=== PATIENT | male | born 1975 | race Caucasian/White ===

== ENCOUNTER 2022-11-15 12:29 | Emergency (ER) | payer SELFPAY ==
[~2022-11-15] VITALS: Ht 177 cm; Wt 93.2 kg
--- NOTE | 2022-11-15 12:48 | ED Psychosocial ---
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 has been an alcoholic for thirty years. has had seizures with detox before. Source: patient, family ((fiance)) History of Present Illness Date Seen by Provider: Nov 15, 2022 Time Seen by Provider: 12:37 Initial Comments Patient is a 47-year-old male who presents to the emergency room with his "fianc" chief complaint of alcohol intoxication and possibly needing medical admit for withdrawal. He has been trying to get sober over the last several weeks, keeping appointments with [facility] and [facility]. He was on docket for admission today and his fiance states that he drank an excessive amount last night. His drink of choice is vodka "1.75 L a day" for the last 30 years. He does have a history of stroke that did not leave him with any significant debility. He states he has some chronic blood in his stool that is been worked up without any etiology. He has been treated for hep C. He does have a history of hypertension. No recent fevers, chills, congestion. He does have occasional cough. States that he is nauseous right now. Patient medications from [facility] were sent over to [facility] for him for withdrawal, including Ativan. Timing/Duration: this morning Associated Symptoms: anxiety, impaired concentration Allergies and Home Medications Allergies Coded Allergies: gabapentin (Verified Allergy, Unknown, 11/15/22) Patient Home Medication List Home Medication List Reviewed: Yes Chlordiazepoxide HCl (Chlordiazepoxide HCl) 25 Mg Capsule, 75 MG PO TID Prescribed by: JAI CLEVELAND on 11/15/221747 Ondansetron (Ondansetron Odt) 8 Mg Tab.rapdis, 8 MG SL Q8H PRN for NAUSEA/VOMITING Prescribed by: JAI CLEVELAND on 11/15/221747 Review of Systems Constitutional: see HPI EENTM: no symptoms reported Respiratory: no symptoms reported Cardiovascular: no symptoms reported Gastrointestinal: nausea Genitourinary: no symptoms reported Musculoskeletal: no symptoms reported Skin: no symptoms reported Psychiatric/Neurological: Anxiety, Emotional Problems All Other Systems Reviewed Negative Unless Noted: Yes Past [place]-Ajxdjz-[place]jjiim Hx Patient Social History Tobacco Use?: Yes Tobacco type used: Cigarettes Smoking Status: Current Everyday Smoker Substance use?: Yes Substance type: Marijuana Alcohol Use?: Yes Alcohol type: Hard Liquor Alcohol Frequency: Daily Pt feels they are or have been: No Past Medical History Surgery/Hospitalization HX: CVA, ETOH, IV DRUG USE 15 YRS AGO Physical Exam Vital Signs - First Documented 11/15/22 11/15/22 12:38 13:46 Temp 36.5 Pulse 103 Resp 20 B/P (MAP) 157/120 (132) Pulse Ox 97 O2 Delivery Nasal Cannula O2 Flow Rate 1.00 Capillary Refill : Height, Weight, BMI Height: '" Weight: lbs. oz. kg; 29.00 BMI Method: General Appearance: WD/WN, mild distress HEENT: other (injected conjunctivae bilaterally) Neck: full range of motion Respiratory: lungs clear, normal breath sounds, no respiratory distress, no accessory muscle use Cardiovascular: regular rate, rhythm, tachycardia Peripheral Pulses: 2+ Radial Pulses (R), 2+ Radial Pulses (L) Gastrointestinal: normal bowel sounds, non tender, soft Extremities: normal range of motion Neurologic/Psychiatric: no motor/sensory deficits, alert, depressed affect Behavior/Eye Contact: cooperative, other (slurred speech) Skin: normal color, warm/dry Progress/Results/Core Measures Results/Orders Lab Results Laboratory Tests Test 11/15/22 12:45 11/15/22 14:36 Range/Units White Blood Count 5.9 4.3-11.0 10^3/uL Red Blood Count 4.36 4.30-5.52 10^6/uL Hemoglobin 14.7 13.3-17.7 g/dL Hematocrit 42 40-54 % Mean Corpuscular Volume 96 80-99 fL Mean Corpuscular Hemoglobin 34 25-34 pg Mean Corpuscular Hemoglobin Concent 35 32-36 g/dL Red Cell Distribution Width 13.5 10.0-14.5 % Platelet Count 179 130-400 10^3/uL Mean Platelet Volume 9.2 9.0-12.2 fL Immature Granulocyte % (Auto) 1 % Neutrophils (%) (Auto) 64 42-75 % Lymphocytes (%) (Auto) 21 12-44 % Monocytes (%) (Auto) 10 0-12 % Eosinophils (%) (Auto) 2 0-10 % Basophils (%) (Auto) 2 0-10 % Neutrophils # (Auto) 3.8 1.8-7.8 10^3/uL Lymphocytes # (Auto) 1.2 1.0-4.0 10^3/uL Monocytes # (Auto) 0.6 0.0-1.0 10^3/uL Eosinophils # (Auto) 0.1 0.0-0.3 10^3/uL Basophils # (Auto) 0.1 0.0-0.1 10^3/uL Immature Granulocyte # (Auto) 0.0 0.0-0.1 10^3/uL Sodium Level 144 135-145 MMOL/L Potassium Level 3.6 3.6-5.0 MMOL/L Chloride Level 111 H 98-107 MMOL/L Carbon Dioxide Level 19 L 21-32 MMOL/L Anion Gap 14 5-14 MMOL/L Blood Urea Nitrogen 9 7-18 MG/DL Creatinine 0.87 0.60-1.30 MG/DL Estimat Glomerular Filtration Rate 108 BUN/Creatinine Ratio 10 Glucose Level 165 H 70-105 MG/DL Calcium Level 8.9 8.5-10.1 MG/DL Corrected Calcium 8.6 8.5-10.1 MG/DL Total Bilirubin 0.5 0.1-1.0 MG/DL Aspartate Amino Transf (AST/SGOT) 89 H 5-34 U/L Alanine Aminotransferase (ALT/SGPT) 82 H 0-55 U/L Alkaline Phosphatase 86 40-136 U/L Total Protein 7.9 6.4-8.2 GM/DL Albumin 4.4 3.2-4.5 GM/DL Salicylates Level < 5.0 L 5.0-20.0 MG/DL Acetaminophen Level < 10 L 10-30 UG/ML Serum Alcohol 447 *H <10 MG/DL Urine Opiates Screen NEGATIVE NEGATIVE Urine Oxycodone Screen NEGATIVE NEGATIVE Urine Methadone Screen NEGATIVE NEGATIVE Urine Propoxyphene Screen NEGATIVE NEGATIVE Urine Barbiturates Screen NEGATIVE NEGATIVE Ur Tricyclic Antidepressants Screen NEGATIVE NEGATIVE Urine Phencyclidine Screen NEGATIVE NEGATIVE Urine Amphetamines Screen NEGATIVE NEGATIVE Urine Methamphetamines Screen NEGATIVE NEGATIVE Urine Benzodiazepines Screen NEGATIVE NEGATIVE Urine Cocaine Screen NEGATIVE NEGATIVE Urine Cannabinoids Screen POSITIVE H NEGATIVE My Orders Orders - JAI CLEVELAND MD Cbc With Automated Diff (11/15/22 12:48) Comprehensive Metabolic Panel (11/15/22 12:48) Alcohol (11/15/22 12:48) Acetaminophen (11/15/22 12:48) Salicylate (11/15/22 12:48) Ekg Tracing (11/15/22 12:48) Lactated Ringers (Lr 1000 Ml Iv Solution (11/15/22 13:00) Ondansetron Injection (Zofran Injectio (11/15/22 13:00) Ondansetron Injection (Zofran Injectio (11/15/22 12:55) Lactated Ringers (Lr 1000 Ml Iv Solution (11/15/22 12:55) Ekg Tracing (11/15/22 13:23) Nicotine Patch (Nicoderm Patch) (11/15/22 13:30) Iv/Invasive Line Insertion .IV INSERT (11/15/22 13:40) Drug Screen Stat (Urine) (11/15/22 13:40) Oxygen-Administer 07,19 (11/15/22 13:49) Lactated Ringers (Lr 1000 Ml Iv Solution (11/15/22 14:30) Pantoprazole Injection (Protonix Injecti (11/15/22 15:30) Ondansetron Injection (Zofran Injectio (11/15/22 15:30) Ns Iv 1000 Ml (Sodium Chloride 0.9%) (11/15/22 16:30) Lorazepam Tablet (Ativan Tablet) (11/15/22 16:30) Lorazepam Tablet (Ativan Tablet) (11/15/22 17:35) Medications Given in ED Vital Signs/I&O 11/16/22 00:00 Intake Total 3000 ml Balance 3000 ml Blood Pressure Mean: 132 Progress Progress Note : Time: 16:53 Progress Note Patient seen and evaluated by me. Evaluation today includes physical exam, CBC, Chem-12, urine drug screen, alcohol, acetaminophen, salicylate levels. Patient also had an EKG done. Pertinent physical exam findings well-developed well- nourished male obviously intoxicated with slurred speech, injected conjunctive a bilaterally, regular heart rhythm, clear lungs, soft and nontender abdomen. Moving all 4 extremities. Following commands, oriented but again appears acutely intoxicated on alcohol. Differential diagnosis based on history and physical exam acute alcohol intoxication Labs, EKG independently reviewed and interpreted by me. See is completely normal. Chem-12 pertinent for a mildly decreased CO2 at 19. His serum blood sugar is 165. AST is 89 ALT is elevated at 82. His total bilirubin is within normal limits of 0.5. Normal electrolytes and normal renal function. His urine drug screen is positive for THC. Aspirin and acetaminophen levels are undetectable, his serum alcohol is 447. EKG is normal. Patient is initially treated in the emergency department with 2 L of lactated Ringer's. He was mildly tachycardic at presentation with a heart rate of 103. He had 1/3 L of normal saline. The patient had IV Zofran a total of 8 mg. He was given 40 mg of IV Protonix and received a total of 3 mg of Ativan p.o. throughout his stay in the ED. The plan was initially to try and sober the patient up to acceptable levels for admission to [facility] for detox however due to the timing and the admit staff leaving at 5 PM I spoke with the director of [facility] and they initially asked for us to keep the patient overnight and monitor the patient for withdrawal symptoms and treat as needed and then they would take him the following morning however this is not acceptable for the ED as we are not a medical detox unit. There are no physicians available at our facility to accommodate medical detox. The patient remains intoxicated and very anxious. I discussed with the patient discharged home with a short course of chlordiazepoxide and nausea medications. He is quite apprehensive. His fiance was contacted and will drive back from [facility] to come pick him up. The director at [facility] stated that as long as the patient was completely sober in the morning at 9 AM he would be admitted to detox. Patient discharged home in care of his fiance. Initial ECG Impression Date: Nov 15, 2022 Initial ECG Impression Time: 13:03 Initial ECG Rate: 96 Initial ECG Rhythm: Normal Sinus Initial ECG Impression: Normal Comment NO ectopy; no ST segment change Departure Impression Primary Impression: Alcohol abuse Additional Impression: Alcohol intoxication Qualified Codes: F10.920 - Alcohol use, unspecified with intoxication, uncomplicated Disposition: 01 HOME, SELF-CARE Condition: Stable Departure-Patient Inst. Decision time for Depature: 17:02 Referrals: [facility] [place] Patient Instructions: Alcohol Use Disorder ED Add. Discharge Instructions: NO alcohol tonight. Zofran for nausea as needed every 8 hours. Chlordiazepoxide as directed for anxiety/withdrawal symptoms. 3 pills every 8 hours for the first 24hr; 2 pills every 8 hours the following day, 1 pills every 8 hours day 3 and 1 pill every 12h the last day. You must be at [facility] tomorrow at 9AM with NO ALCOHOL in your system; if you have a lcohol you will not be admitted. If you cannot be at home with your girlfriend and not drink - go to a sober friend's house for the night. REturn to the Emergency Department for any new, concerning or emergent complaints. Scripts Ondansetron (Ondansetron Odt) 8 Mg Tab.rapdis 8 MG SL Q8H PRN for NAUSEA/VOMITING, #12 TAB Prov: JAI CLEVELAND MD 11/15/22 Chlordiazepoxide HCl (Chlordiazepoxide HCl) 25 Mg Capsule 75 MG PO TID, #20 CAP 3 pills Q8h day 1; 2 pills Q8h day 2; 1 pills Q8h day 3; 1 pill Q12h day 4 Prov: JAI CLEVELAND MD 11/15/22 JAI CLEVELAND MD Nov 15, 2022 12:48
[2022-11-15 12:55] LABS: BASOPHILS # (AUTO) 0.1 10^3/uL (0.0-0.1); BASOPHILS % (AUTO) 2 % (0-10); EOSINOPHILS # (AUTO) 0.1 10^3/uL (0.0-0.3); EOSINOPHILS % (AUTO) 2 % (0-10); HEMATOCRIT 42 % (40-54); HEMOGLOBIN 14.7 g/dL (13.3-17.7); LYMPHOCYTES # (AUTO) 1.2 10^3/uL (1.0-4.0); LYMPHOCYTES % (AUTO) 21 % (12-44); MEAN CORPUSCULAR HEMOGLOBIN 34 pg (25-34); MEAN CORPUSCULAR HGB CONC 35 g/dL (32-36); MEAN CORPUSCULAR VOLUME 96 fL (80-99); MEAN PLATELET VOLUME 9.2 fL (9.0-12.2); MONOCYTES # (AUTO) 0.6 10^3/uL (0.0-1.0); MONOCYTES % (AUTO) 10 % (0-12); NEUTROPHILS # (AUTO) 3.8 10^3/uL (1.8-7.8); NEUTROPHILS % (AUTO) 64 % (42-75); PLATELET COUNT 179 10^3/uL (130-400); WHITE BLOOD COUNT 5.9 10^3/uL (4.3-11.0)
[2022-11-15] MEDS ORDERED: LACTATED RINGERS 1,000 ML IV ONE (12:55)
[2022-11-15] MEDS ORDERED: ONDANSETRON 4 MG/2 ML (SDV) Z0FRAN ONE (12:55)
[2022-11-15] MEDS: LACTATED RINGERS 1,000 ML IV SCH ×2 (12:57→14:31)
[2022-11-15] MEDS ORDERED: ONDANSETRON 4 MG/2 ML (SDV) Z0FRAN IVP ONE ×2 (13:00→15:30)
[2022-11-15 13:09] LABS: ALBUMIN 4.4 GM/DL (3.2-4.5); CHLORIDE 111 MMOL/L (98-107); POTASSIUM 3.6 MMOL/L (3.6-5.0); SODIUM 144 MMOL/L (135-145)
[2022-11-15 13:11] LABS: CALCIUM 8.9 MG/DL (8.5-10.1)
[2022-11-15 13:12] LABS: GLUCOSE 165 MG/DL (70-105); TOTAL PROTEIN 7.9 GM/DL (6.4-8.2)
[2022-11-15 13:13] LABS: CARBON DIOXIDE 19 MMOL/L (21-32)
[2022-11-15 13:14] LABS: BILIRUBIN,TOTAL 0.5 MG/DL (0.1-1.0)
[2022-11-15 13:16] LABS: ALKALINE PHOSPHATASE 86 U/L (40-136); CREATININE SERUM 0.87 MG/DL (0.60-1.30); GFR ESTIMATED 108
[2022-11-15 13:17] LABS: ACETAMINOPHEN < 10 UG/ML (10-30); BUN/CREATININE RATIO 10
[2022-11-15 13:18] LABS: SALICYLATE < 5.0 MG/DL (5.0-20.0)
[2022-11-15 13:19] LABS: ALANINE AMINOTRANSFERASE 82 U/L (0-55)
[2022-11-15] MEDS ORDERED: NICOTINE 21 MG (NICODERM) PATCH TD ONE (13:30)
[2022-11-15] MEDS ORDERED: LACTATED RINGERS 1,000 ML IV SCH (14:30)
[2022-11-15 14:57] LABS: AMPHETAMINE SCREEN, URINE NEGATIVE (NEGATIVE); BARBITURATE SCREEN URINE NEGATIVE (NEGATIVE); BENZODIAZEPINES SCREEN URINE NEGATIVE (NEGATIVE); CANNABINOID SCREEN, URINE POSITIVE (NEGATIVE); COCAINE SCREEN URINE NEGATIVE (NEGATIVE); METHADONE STAT NEGATIVE (NEGATIVE); OPIATE SCREEN URINE NEGATIVE (NEGATIVE); OXYCODONE STAT NEGATIVE (NEGATIVE); PROPOXYPHENE STAT NEGATIVE (NEGATIVE); TRICYCLIC ANTIDEPRESSANTS SCRE NEGATIVE (NEGATIVE)
[2022-11-15] MEDS ORDERED: PANTOPRAZOLE 40 MG (PROTONIX) VIAL IV ONE (15:30)
[2022-11-15] MEDS ORDERED: NS IV 1000 ML 1,000 ML IV SCH (16:30)
[2022-11-15] MEDS ORDERED: LORazepam 1 MG (ATIVAN) TAB PO ONE (16:30)
[2022-11-15] MEDS ORDERED: LORazepam 1 MG (ATIVAN) TAB PO STA (17:35)
[2022-11-15] MEDS ORDERED: CHLO25CA10 PO (17:47)
[2022-11-15] MEDS ORDERED: ONDA8TAB13 SL (17:48)
[2022-11-15 18:25] VITALS: BP 129/88
== END 2022-11-15 18:45 | disposition home or self-care (01) ==
LOC: ER 12:32
DX: F10.129 Alcohol abuse with intoxication, unspecified (principal); F17.210 Nicotine dependence, cigarettes, uncomplicated; Y90.8 Blood alcohol level of 240 mg/100 ml or more; Z28.310 Unvaccinated for COVID-19
CPT/HCPCS: 80053; 80306; 85025; 93005; 93041; 99284; G0480 ×3; 36415; 80320; 80329